=== PATIENT | male | born 1955 | race Caucasian/White ===

== ENCOUNTER 2017-06-01 08:18 | Emergency (ER) | payer OTHER ==
[~2017-06-01] VITALS: Ht 170.2 cm; Wt 136.1 kg
[~2017-06-01 08:18] MED LIST: CLEOCIN HCL300 MG PO; HUMALOG100 U/ML; KETO10TA2 PO; LANTUS100 U/ML; LISINOPRIL10 MG; LOSARTAN-HCTZ1 EAC1; VERAPAMIL ER200 MG
[2017-06-01] MEDS ORDERED: TUSSI PRES-B L120 M1 PO (10:45)
[2017-06-01] MEDS ORDERED: OSEL75CA PO (10:45)
== END 2017-06-01 10:57 | disposition home or self-care (01) ==
LOC: ER 08:18
DX: J11.1 Influenza due to unidentified influenza virus with other respiratory manifestations (principal); B34.9 Viral infection, unspecified

== ENCOUNTER 2017-07-23 07:15 | Outpatient (CLI) | payer OTHER ==
[~2017-07-23 07:15] MED LIST changes: +OSEL75CA PO; +TUSSI PRES-B L120 M1 PO
== END 2017-07-23 07:29 | disposition home or self-care (01) ==
LOC: LAB 07:15
DX: I10 Essential (primary) hypertension (principal); E11.65 Type 2 diabetes mellitus with hyperglycemia; E78.2 Mixed hyperlipidemia

== ENCOUNTER 2017-12-09 08:01 | Emergency (ER) | payer OTHER ==
[~2017-12-09] VITALS: Ht 170.2 cm; Wt 136.1 kg
== END 2017-12-09 14:04 | disposition home or self-care (01) ==
LOC: ER 08:01
DX: M54.5 Low back pain (principal)

== ENCOUNTER 2018-01-17 08:01 | Emergency (ER) | payer OTHER ==
[~2018-01-17] VITALS: Ht 170.2 cm; Wt 136.1 kg
[2018-01-17] MEDS ORDERED: LIPITOR20 MG (08:19)
[2018-01-17] MEDS ORDERED: CATAPRES0.2 MG (08:19)
[2018-01-17] MEDS ORDERED: BUMETANIDE2 MG (08:19)
== END 2018-01-17 14:00 | disposition home or self-care (01) ==
LOC: ER 08:01
DX: M25.561 Pain in right knee (principal)

== ENCOUNTER 2018-05-09 07:27 | Emergency (ER) | payer OTHER ==
[~2018-05-09] VITALS: Ht 170.2 cm; Wt 136.1 kg
[~2018-05-09 07:27] MED LIST changes: +BUMETANIDE2 MG; +CATAPRES0.2 MG; +LIPITOR20 MG
[2018-05-09] MEDS ORDERED: DOXYCYCLINE HY100 MG PO (11:38)
[2018-05-09] MEDS ORDERED: ULTRACET PO (11:40)
== END 2018-05-09 11:57 | disposition home or self-care (01) ==
LOC: ER 07:27
DX: M25.431 Effusion, right wrist (principal); E11.9 Type 2 diabetes mellitus without complications

== ENCOUNTER 2018-05-16 13:32 | Inpatient (IN) | payer OTHER ==
[~2018-05-16] VITALS: Ht 170.2 cm; Wt 136.1 kg
[~2018-05-16 13:32] MED LIST changes: +DOXYCYCLINE HY100 MG PO; +ULTRACET PO
== END 2018-05-27 19:27 | disposition home or self-care (01) | DRG 638 ==
LOC: MEDI 13:32
PROVIDERS: ADMIT Internal Medicine
PROC: 4A12X4Z Monitoring of Cardiac Electrical Activity, External Approach (ICD-10-PCS; 2018-05-16)
PROC: B54MZZZ Ultrasonography of Right Upper Extremity Veins (ICD-10-PCS; principal; 2018-05-17)
PROC: 02HV33Z Insertion of Infusion Device into Superior Vena Cava, Percutaneous Approach (ICD-10-PCS; 2018-05-24)
PROC: 30233N1 Transfusion of Nonautologous Red Blood Cells into Peripheral Vein, Percutaneous Approach (ICD-10-PCS; 2018-05-24)
PROC: BH4CZZZ Ultrasonography of Head and Neck (ICD-10-PCS; 2018-05-26)
DX: E11.628 Type 2 diabetes mellitus with other skin complications (principal); L03.113 Cellulitis of right upper limb; I13.0 Hypertensive heart and chronic kidney disease with heart failure and stage 1 through stage 4 chronic kidney disease, or unspecified chronic kidney disease; Z79.4 Long term (current) use of insulin; R80.8 Other proteinuria; D64.89 Other specified anemias; E66.09 Other obesity due to excess calories; E11.319 Type 2 diabetes mellitus with unspecified diabetic retinopathy without macular edema; E11.65 Type 2 diabetes mellitus with hyperglycemia; E11.21 Type 2 diabetes mellitus with diabetic nephropathy; I11.9 Hypertensive heart disease without heart failure; E11.22 Type 2 diabetes mellitus with diabetic chronic kidney disease; N18.2 Chronic kidney disease, stage 2 (mild); E11.00 Type 2 diabetes mellitus with hyperosmolarity without nonketotic hyperglycemic-hyperosmolar coma (NKHHC); M62.81 Muscle weakness (generalized); N17.9 Acute kidney failure, unspecified; B35.3 Tinea pedis; E79.0 Hyperuricemia without signs of inflammatory arthritis and tophaceous disease

== ENCOUNTER 2018-08-02 02:44 | Emergency (ER) | payer OTHER ==
[~2018-08-02] VITALS: Ht 152.4 cm; Wt 136.1 kg
[2018-08-02] MEDS ORDERED: INTESTINEX680 M1 PO (04:55)
[2018-08-02] MEDS ORDERED: CIPRO500 MG PO (04:55)
== END 2018-08-02 04:59 | disposition home or self-care (01) ==
LOC: ER 02:44
DX: S91.115A Laceration without foreign body of left lesser toe(s) without damage to nail, initial encounter (principal); W45.8XXA Other foreign body or object entering through skin, initial encounter; Y93.89 Activity, other specified; Y92.018 Other place in single-family (private) house as the place of occurrence of the external cause; Y99.8 Other external cause status

== ENCOUNTER 2018-08-12 10:37 | Inpatient (IN) | payer OTHER ==
[~2018-08-12] VITALS: Ht 170.2 cm; Wt 136.1 kg
[~2018-08-12 10:37] MED LIST changes: +CIPRO500 MG PO; +INTESTINEX680 M1 PO
== END 2018-08-24 18:20 | disposition home or self-care (01) | DRG 256 ==
LOC: ER 10:37 → MEDJ 20:45 → MEDI 20:45
PROVIDERS: ADMIT Student in an Organized Health Care Education/Training Program
PROC: 0Y6Y0Z3 Detachment at Left 5th Toe, Low, Open Approach (ICD-10-PCS; principal; 2018-08-12)
DX: E11.52 Type 2 diabetes mellitus with diabetic peripheral angiopathy with gangrene (principal); I96 Gangrene, not elsewhere classified; N17.8 Other acute kidney failure; L03.115 Cellulitis of right lower limb; E11.00 Type 2 diabetes mellitus with hyperosmolarity without nonketotic hyperglycemic-hyperosmolar coma (NKHHC); E11.65 Type 2 diabetes mellitus with hyperglycemia; I13.10 Hypertensive heart and chronic kidney disease without heart failure, with stage 1 through stage 4 chronic kidney disease, or unspecified chronic kidney disease; N18.9 Chronic kidney disease, unspecified; D64.89 Other specified anemias; G47.33 Obstructive sleep apnea (adult) (pediatric); E66.09 Other obesity due to excess calories; E11.21 Type 2 diabetes mellitus with diabetic nephropathy; E11.22 Type 2 diabetes mellitus with diabetic chronic kidney disease; E11.42 Type 2 diabetes mellitus with diabetic polyneuropathy; E11.319 Type 2 diabetes mellitus with unspecified diabetic retinopathy without macular edema; R60.1 Generalized edema; E87.79 Other fluid overload; B35.3 Tinea pedis; B96.4 Proteus (mirabilis) (morganii) as the cause of diseases classified elsewhere; B95.62 Methicillin resistant Staphylococcus aureus infection as the cause of diseases classified elsewhere; B95.2 Enterococcus as the cause of diseases classified elsewhere; B96.89 Other specified bacterial agents as the cause of diseases classified elsewhere; B96.5 Pseudomonas (aeruginosa) (mallei) (pseudomallei) as the cause of diseases classified elsewhere

== ENCOUNTER 2018-08-29 09:31 | Inpatient (IN) | payer OTHER ==
[~2018-08-29] VITALS: Ht 170.2 cm; Wt 108.9 kg
--- NOTE | 2018-08-29 09:48 | NUR ---
SE RECIBE PT ALERTA Y ORIENTADO X 3 EN AMBULANCIA, REFIERE TENER TEMBLORES Y PRESENTA PITTING EDEMA EN EXTREMIDADES SUPERIORES E INFERIORES. REFIERE TEMBLORES COMENZARON DESDE EL ELEANOR DE CHEL. PT HX FALLO RENAL.
[2018-08-29] MEDS ORDERED: NEURONTIN800 MG PO (09:51)
--- NOTE | 2018-08-29 11:27 | NUR ---
MS LOGRONO ORIENTA A PACIENTE SOBRE ORDENES MEDICAS. COLOCA IV FLUID, CANALIZA PACIENTE Y COLECTA MUESTRAS DE LABORATORIO ORDENADAS BAJO MEDIDAS ASEPTICAS. PENDIENTE A RESULTADOS DE LABORATORIO PARA RE-EVALUACION MEDICA.
== END 2018-09-02 12:21 | disposition home or self-care (01) | DRG 698 ==
LOC: ER 09:31 → MEDI 17:12
PROVIDERS: ADMIT Student in an Organized Health Care Education/Training Program
PROC: B345ZZZ Ultrasonography of Bilateral Common Carotid Arteries (ICD-10-PCS; principal; 2018-08-29)
PROC: B246ZZZ Ultrasonography of Right and Left Heart (ICD-10-PCS; 2018-08-29)
PROC: B030ZZZ Magnetic Resonance Imaging (MRI) of Brain (ICD-10-PCS; 2018-08-29)
PROC: 4A12X4Z Monitoring of Cardiac Electrical Activity, External Approach (ICD-10-PCS; 2018-08-29)
DX: E11.22 Type 2 diabetes mellitus with diabetic chronic kidney disease (principal); J96.02 Acute respiratory failure with hypercapnia; I13.0 Hypertensive heart and chronic kidney disease with heart failure and stage 1 through stage 4 chronic kidney disease, or unspecified chronic kidney disease; E87.2 Acidosis; N17.8 Other acute kidney failure; R27.8 Other lack of coordination; R47.81 Slurred speech; G25.3 Myoclonus; G90.2 Horner's syndrome; R60.1 Generalized edema; D64.89 Other specified anemias; N18.1 Chronic kidney disease, stage 1; E78.00 Pure hypercholesterolemia, unspecified; E11.40 Type 2 diabetes mellitus with diabetic neuropathy, unspecified; E11.319 Type 2 diabetes mellitus with unspecified diabetic retinopathy without macular edema; I25.10 Atherosclerotic heart disease of native coronary artery without angina pectoris; E66.01 Morbid (severe) obesity due to excess calories; Z89.422 Acquired absence of other left toe(s); Z99.81 Dependence on supplemental oxygen
CPT/HCPCS: 70551

== ENCOUNTER 2019-05-17 08:56 | Emergency (ER) | payer OTHER ==
[~2019-05-17] VITALS: Ht 170.2 cm; Wt 108.9 kg
[~2019-05-17 08:56] MED LIST changes: +NEURONTIN800 MG PO; -VERAPAMIL ER200 MG; +VERAPAMIL ER200 MG PO
[2019-05-17] MEDS ORDERED: GLIPIZIDE XL10 MG PO (09:44)
[2019-05-18] MEDS ORDERED: SYNTHROID50 MCG PO (07:21)
== END 2019-05-18 08:22 | disposition home or self-care (01) ==
LOC: ER 08:56
DX: R06.02 Shortness of breath (principal); R05 Cough; E11.65 Type 2 diabetes mellitus with hyperglycemia; E11.21 Type 2 diabetes mellitus with diabetic nephropathy; B34.9 Viral infection, unspecified; B35.3 Tinea pedis

== ENCOUNTER 2019-05-26 08:21 | Inpatient (IN) | payer OTHER ==
[~2019-05-26] VITALS: Ht 175.3 cm; Wt 156.5 kg
[~2019-05-26 08:21] MED LIST changes: +GLIPIZIDE XL10 MG PO; +SYNTHROID50 MCG PO
[2019-05-26] MEDS ORDERED: GLIPIZIDE XL10 MG PO (08:35)
[2019-05-26] MEDS ORDERED: ATORVASTATIN CA20 MG PO (08:35)
[2019-05-26] MEDS ORDERED: VERAPAMIL ER240 MG PO (08:35)
[2019-05-26] MEDS ORDERED: COZAAR50 MG PO (08:35)
[2019-05-26] MEDS ORDERED: COZAAR100 MG PO (08:35)
[2019-05-26] MEDS ORDERED: HUMALOG100 UNIT/2 SQ (08:36)
[2019-05-26] MEDS ORDERED: NEURONTIN800 MG PO (08:36)
[2019-05-26] MEDS ORDERED: LANTUS SOL100 UNIT/1 (08:36)
[2019-05-26] MEDS ORDERED: CLONIDINE1000 MCG/1 (08:37)
== END 2019-07-18 08:36 | disposition expired | DRG 4 ==
LOC: ER 08:21 → MEDJ 13:37 → ICU 13:37 → ICU-2 13:37 → ICU 16:22 → MEDJ 06-19 21:37
PROVIDERS: Otolaryngology; ADMIT Internal Medicine
PROC: 0BH17EZ Insertion of Endotracheal Airway into Trachea, Via Natural or Artificial Opening (ICD-10-PCS; 2019-05-26)
PROC: 5A1955Z Respiratory Ventilation, Greater than 96 Consecutive Hours (ICD-10-PCS; 2019-05-26)
PROC: 3E0G76Z Introduction of Nutritional Substance into Upper GI, Via Natural or Artificial Opening (ICD-10-PCS; 2019-05-26)
PROC: 0DH67UZ Insertion of Feeding Device into Stomach, Via Natural or Artificial Opening (ICD-10-PCS; 2019-05-26)
PROC: 4A033R1 Measurement of Arterial Saturation, Peripheral, Percutaneous Approach (ICD-10-PCS; 2019-05-26)
PROC: B54DZZZ Ultrasonography of Bilateral Lower Extremity Veins (ICD-10-PCS; 2019-05-26)
PROC: B246ZZZ Ultrasonography of Right and Left Heart (ICD-10-PCS; 2019-05-26)
PROC: B020ZZZ Computerized Tomography (CT Scan) of Brain (ICD-10-PCS; 2019-05-27)
PROC: BB24ZZZ Computerized Tomography (CT Scan) of Bilateral Lungs (ICD-10-PCS; 2019-05-27)
PROC: 02HV33Z Insertion of Infusion Device into Superior Vena Cava, Percutaneous Approach (ICD-10-PCS; 2019-05-27)
PROC: 0DH63UZ Insertion of Feeding Device into Stomach, Percutaneous Approach (ICD-10-PCS; 2019-06-14)
PROC: 3E0G76Z Introduction of Nutritional Substance into Upper GI, Via Natural or Artificial Opening (ICD-10-PCS; 2019-06-14)
PROC: 0B110F4 Bypass Trachea to Cutaneous with Tracheostomy Device, Open Approach (ICD-10-PCS; principal; 2019-06-14 13:45)
PROC: 0W993ZZ Drainage of Right Pleural Cavity, Percutaneous Approach (ICD-10-PCS; 2019-06-17)
PROC: 4A12X4Z Monitoring of Cardiac Electrical Activity, External Approach (ICD-10-PCS; 2019-06-20)
PROC: 30233N1 Transfusion of Nonautologous Red Blood Cells into Peripheral Vein, Percutaneous Approach (ICD-10-PCS; 2019-07-09)
DX: J96.01 Acute respiratory failure with hypoxia (principal); E11.00 Type 2 diabetes mellitus with hyperosmolarity without nonketotic hyperglycemic-hyperosmolar coma (NKHHC); I82.493 Acute embolism and thrombosis of other specified deep vein of lower extremity, bilateral; G93.1 Anoxic brain damage, not elsewhere classified; J91.8 Pleural effusion in other conditions classified elsewhere; N17.8 Other acute kidney failure; E11.52 Type 2 diabetes mellitus with diabetic peripheral angiopathy with gangrene; I96 Gangrene, not elsewhere classified; J98.11 Atelectasis; E87.4 Mixed disorder of acid-base balance; I50.20 Unspecified systolic (congestive) heart failure; I13.0 Hypertensive heart and chronic kidney disease with heart failure and stage 1 through stage 4 chronic kidney disease, or unspecified chronic kidney disease; N39.0 Urinary tract infection, site not specified; I08.3 Combined rheumatic disorders of mitral, aortic and tricuspid valves; E66.09 Other obesity due to excess calories; I13.10 Hypertensive heart and chronic kidney disease without heart failure, with stage 1 through stage 4 chronic kidney disease, or unspecified chronic kidney disease; N18.9 Chronic kidney disease, unspecified; E11.65 Type 2 diabetes mellitus with hyperglycemia; E11.42 Type 2 diabetes mellitus with diabetic polyneuropathy; E11.44 Type 2 diabetes mellitus with diabetic amyotrophy; E11.319 Type 2 diabetes mellitus with unspecified diabetic retinopathy without macular edema; D50.8 Other iron deficiency anemias; E79.0 Hyperuricemia without signs of inflammatory arthritis and tophaceous disease; R27.8 Other lack of coordination; B96.29 Other Escherichia coli [E. coli] as the cause of diseases classified elsewhere